=== PATIENT | male | born 1965 | race Caucasian/White ===

== ENCOUNTER 2021-12-31 22:25 | Emergency (ER) | payer OTHER, SELFPAY ==
[2021-12-31 22:27] VITALS: BP 169/85; PULSE 89; RESP 18; TEMP 36.3; O2SAT 95
[2021-12-31 23:08] LABS: Add Urine Microscopic? YES; Appearance Urine Cloudy (Clear); Bilirubin Urine Negative (Negative); Blood Urine Negative (Negative); Color Urine Yellow (Yellow); Glucose Urine UA Negative (Negative); Ketones Urine Negative (Negative); Leukocyte Esterase Ur Negative LEU/UL (Negative); Mucus Urine Rare /lpf; Nitrate Urine Negative (Negative); Protein Urine 1+ mg/dL (Negative); RBC Urine 0-2 /hpf (0-2); Specific Grav Ur 1.005 (1.001-1.035); Squamous Epithelial Cell Urine Rare /hpf (Few); Urobilinogen Urine Negative mg/dL (<2.0)
[2021-12-31 23:13] LABS: Basophils Percent Auto 0.2 % (0.2-1.2); Eosinophils Absolute Auto 0.1 K/mm3 (0-0.3); Eosinophils Percent Auto 1.1 % (0-4.4); Hematocrit 43.3 % (42.0-52.0); Hemoglobin 14.2 g/dL (14.0-18.0); Immature Granulocyte Absolute 0.03 K/mm3 (0.00-0.031); Immature Granulocyte Percent A 0.3 % (0-0.5); Lymphocytes Absolute Auto 2.17 K/mm3 (0.9-3.2); Lymphocytes Percent Auto 23.6 % (18.3-44.2); Mean Corpuscular HGB Conc 32.8 g/dl (32-36); Mean Corpuscular Hemoglobin 29.5 pg (26-34); Mean Platelet Volume 9.4 fl (7.4-10.4); Monocytes Percent Auto 10.4 % (2.6-8.5); Neutrophils Absolute Auto 5.9 K/mm3 (1.3-6.7); Neutrophils Percent Auto 64.4 % (45.5-73.1); Platelet Count Result 225 k/mm3 (150-375); Red Blood Count 4.81 M/mm3 (4.6-6.20); Red Cell Distribution Width 12.9 % (11.5-14.5); White Blood Count 9.2 K/mm3 (4.5-10.0)
--- NOTE | 2021-12-31 23:30 | ED.MALEGU ---
HPI - Male Genitourinary General Chief complaint: Urogenital-Male Stated complaint: unable to urinate Time Seen by Provider: 12/31/21 22:38 Source: patient Mode of arrival: ambulatory Limitations: no limitations History of Present Illness HPI Narrative: Pt is a 56 y/o male, presents to ED via POV with C/O urinary retention, onset of symptoms around 1300 today. He endorses the sensation he needs to void but notes he is unable to pass urine, noting only scant dribbling of urine. He denies urinary discomfort, fevers or flank pain prior to onset of urinary retention and he recalls having a similar incident many years ago but none since that time. He does get up once every night to urinate but denies problems initiating a urinary stream at baseline. He has no other complaints and denies new medicatoins or modifying factors. Onset (ago): hour(s) Duration: constant Quality: aching and other (pressure in the suprapubic abdomen) Relieving factors: none Exacerbating factors: none Related Data Sexually active: No Allergies Allergy/AdvReac Type Severity Reaction Status Date / Time Penicillins Allergy Unknown Unknown Verified 12/31/21 22:29 Review of Systems Review of Systems: refer to HPI Exam Const: General: cooperative, healthy appearing, no acute distress and alert Nutritional Appearance: average body habitus Orientation/consciousness: oriented to person, oriented to place, oriented to time and patient oriented x3 Limitations: no limitations HENMT: Head: normal to inspection Ears: hearing grossly normal bilaterally General nose exam: Normal external nose present Face and sinus: normal facial exam Mouth: Yes Normal oral and palatal mucosa present Eyes: General: appearance normal, both eyes and all related structures Visual Crespo: normal visual crespo by confrontation Alignment and Position: alignment normal Periorbital: periorbital findings normal EOM: EOMs intact bilaterally Direct Ophthalmoscopy: normal light reflex Neck: Neck: normal visual inspection Lymphatic: no lymphadenopathy noted Chest: Chest palpation & inspection: normal inspection of the chest Resp: Effort & Inspection: normal respiratory effort and able to speak in complete sentences Auscultation: clear to auscultation bilaterally Cardio: Rate: regular rate Heart sounds: S1 normal heart sound present and S2 normal heart sound present GI: Inspection: distended and other (suprapubic pressure reported with palpation, no focal TTP, no periton. sign) Auscultation: normal bowel sounds Rectal Exam: deferred : General: Yes no CVA tenderness Urinary Catheter: Urinary Catheter: patent and draining and urine clear Back/Spine/Pelvis: Back: no CVA tenderness Thoracic/Lumbar Spine: thoracic and lumbar spine normal to inspection and thoraco-lumbar ROM normal Skin: General skin exam: normal color and no rashes or lesions noted Course Course Emergency Course: catheter placed for urinary retention and bladder decompression. Labs and urinalysis ordered to evaluate renal function and ensure UTI is not present. PLAN TO DISCHARGE HOME WITH ORAL ABX, UROLOGY FU, CATHETER WITH LEG BAG AND INSTRUCTIONS FOR HOME CARE FOLLOW UP Vital Signs Vital signs: Vital Signs Temperature 36.3 C L 12/31/21 22:27 Pulse Rate 89 12/31/21 22:27 Respiratory Rate 18 12/31/21 22:27 Blood Pressure 169/85 H 12/31/21 22:27 Pulse Oximetry 95 12/31/21 22:27 Temperature 36.3 C L 12/31/21 22:27 Pulse Rate 89 12/31/21 22:27 Respiratory Rate 18 12/31/21 22:27 Blood Pressure 169/85 H 12/31/21 22:27 Pulse Oximetry 95 12/31/21 22:27 MDM - Male Genitourinary MDM Narrative Medical decision making narrative: urinary retention, UTI, BPH Differential Diagnosis Differential diagnosis: Likely urinary tract infection Lab Data Result diagrams: 12/31/21 23:09 12/31/21 23:09 Labs: Lab Results 12/31/21 12/31/21 12/31/21 Range/Units 22:57
[2021-12-31 23:49] LABS: Alanine Aminotransferase 31 U/L (4-50); Albumin Level 4.5 g/dL (3.5-5.1); Alkaline Phosphatase 72 U/L (38-126); Anion Gap 12 mmol/L (8-16); Aspartate Amino Transferase 38 U/L (17-59); Bilirubin,Total 0.4 mg/dL (0.2-1.3); Blood Urea Nitrogen 3 mg/dL (9-20); Calcium 9.3 mg/dL (8.4-10.2); Carbon Dioxide 28 mmol/L (22-30); Chloride 100 mmol/L (98-107); Estimated CRCL calculation 95 ml/min; Estimated Glomerular Filt Rate > 60; Glucose 123 mg/dL (65-110); Potassium 3.9 mmol/L (3.4-5.0); Sodium 140 mmol/L (137-145)
--- NOTE | 2022-01-01 01:03 | PC.NURSE ---
Valdez bag removed and leg bag placed. Patient instructed on how to empty leg bag. Verbalized understanding.
[2022-01-01 01:09] VITALS: BP 158/75; PULSE 85; RESP 16; TEMP 36.4; O2SAT 98
[2022-01-01] MEDS: CIPROFLOXACIN 500 MG TAB PO (01:15)
== END 2022-01-01 01:16 | disposition home or self-care (01) ==
PROVIDERS: Emergency Provider Nurse Practitioner Family; PCP Family Medicine
DX: N39.0 Urinary tract infection, site not specified (principal); R33.8 Other retention of urine
CPT/HCPCS: 36415; 51702; 80053; 81001; 85025; 99283; A9270